=== PATIENT | female | born 1950 | race Caucasian/White ===

== ENCOUNTER 2022-07-14 10:08 | Emergency (ER) | payer MEDICARE, OTHER ==
[~2022-07-14] VITALS: Ht 160 cm; Wt 68.0 kg
--- NOTE | 2022-07-14 10:24 | NUR ---
Awaiting arrival of staff member to help translate for pt (Haitian speaker).
[2022-07-14 10:38] LABS: HEMATOCRIT 38.4 % (31.2-41.9); MEAN CORPUSCULAR HEMOGLOBIN 33.4 uug (24.7-32.8); MEAN CORPUSCULAR VOLUME 97.9 fL (75.5-95.3); PLATELET COUNT (AUTO) 229 K/uL (179-408)
[2022-07-14 10:52] LABS: BILIRUBIN,DIRECT 0.1 mg/dL (0.0-0.2); BILIRUBIN,TOTAL 0.5 mg/dL (0.2-1.0); CREATININE 0.8 mg/dL (0.6-1.3)
[2022-07-14 10:59] LABS: THYROID STIMULATING HORMONE 1.078 mIU/mL (0.358-3.740)
[2022-07-14 11:01] LABS: ACETAMINOPHEN < 10.0 ug/mL (10-30)
[2022-07-14 11:12] LABS: ETHANOL < 3 MG/DL (0-0)
--- NOTE | 2022-07-14 12:04 | NUR ---
Social work consult was requested for a patient in the emergency room to assess current living situation. Patient is 72-year-old female that was brought to the hospital by [id number] because she was wandering on the street. Patient is Macedonian speaking and SW used nurse, Wendi, as a supervisor stave finishing. Patient is alert and oriented X2. Patient was able to state her name and that she is at the hospital. Patient presents with anxious mood and congruent affect. Patients Hiren dixon ([phone]) was in the room with the patient during the assessment. Patients Hiren dixon ([phone]) states that he lives at [address] [place] [address]. Patients sonHiren ([phone]), states that the patient lives alone at [address] [place] [address] and that the patient has a absorber operator, Shanique ([phone]) that comes every day in the morning at 9am and in the afternoon from 1:30-4pm. Patients Hiren dixon ([phone]), states that he is getting approval for [facility] for 24/7 care for the patient. SW emphasized the importance of getting the patient 24/7 care and the patient's son stated that he understood and "is working on it now". Patients sonHiren ([phone]), states that he will take the patient home to [address] [place] [address] at discharge and will wait until the patients absorber operator, Shanique ([phone]), comes to the patients home. CLARE made and APS report (Intake ID [id number]) for self-neglect and a copy of Adult Protective Service Report was placed in the patients chart.
[2022-07-14] MEDS ORDERED: ACETAMINOPHEN 325 MG TABLET ONE (12:48)
[2022-07-14 13:07] LABS: *BILIRUBIN,URIN NEGATIVE (NEGATIVE); *BLOOD, URINE NEGATIVE (NEGATIVE); *CLARITY,URINE SLIGHTLY CLOUDY (CLEAR); *COLOR,URINE YELLOW (YELLOW); *KETONES,URINE NEGATIVE (NEGATIVE); *UROBILINOGEN,URINE 0.2 E.U./dl (NORMAL); LEUKOCYTE ESTERASE ,URINE TRACE (NEGATIVE); NITRITE, URINE NEGATIVE (NEGATIVE); PH,URINE 8.5 (5.0-8.0); UGLUCOSE NEGATIVE (NEGATIVE)
[2022-07-14 13:08] LABS: *AMPHETAMINE, URINE NEGATIVE (NEGATIVE); *CANNABINOID, URINE NEGATIVE (NEGATIVE); *COCCAINE, URINE NEGATIVE (NEGATIVE); *OPIATE, URINE NEGATIVE (NEGATIVE); *PHENCYCLIDINE SCREEN,URINE NEGATIVE (NEGATIVE)
[2022-07-14 13:15] LABS: BACTERIA,URINE MODERATE /HPF (NONE SEEN); SQUAMOUS EPITHELIAL CELL,UR FEW /HPF (NONE SEEN)
[2022-07-14 13:16] LABS: URINE AMORPHOUS URATE MODERATE /HPF
--- NOTE | 2022-07-17 10:08 | NUR ---
Per verbal order from Dr. Sanchez at 1245 hrs. on 07/14, administered two each Tylenol 325mg to pt, PO.
== END 2022-07-14 14:03 | disposition home or self-care (01) ==
LOC: ER 10:08
DX: R41.0 Disorientation, unspecified (principal); F03.91 Unspecified dementia, unspecified severity, with behavioral disturbance; Z91.83 Wandering in diseases classified elsewhere; M48.55XA Collapsed vertebra, not elsewhere classified, thoracolumbar region, initial encounter for fracture
CPT/HCPCS: 36415; 84443; 85025; 87086; A4663; G0480

== ENCOUNTER 2023-03-31 07:39 | Day surgery (SDC) | payer MEDICARE, OTHER ==
[2023-03-31] MEDS ORDERED: LIDOCAINE-MPF 2% 5 ML VIAL ONE (09:00)
[2023-03-31] MEDS ORDERED: GLYCOPYRROLATE 0.2 MG/ML VIAL ONE ×2 (09:00)
[2023-03-31] MEDS ORDERED: PROPOFOL 200 MG/20 ML BOTTLE ONE ×2 (09:00)
[2023-03-31 10:50] VITALS: TEMP 97.6
== END 2023-03-31 11:00 | disposition home or self-care (01) ==
LOC: DS 07:39
PROVIDERS: ATTEND Surgery
DX: R10.9 Unspecified abdominal pain (principal); R63.4 Abnormal weight loss; R19.7 Diarrhea, unspecified; R19.4 Change in bowel habit; K44.9 Diaphragmatic hernia without obstruction or gangrene; K21.00 Gastro-esophageal reflux disease with esophagitis, without bleeding; K57.30 Diverticulosis of large intestine without perforation or abscess without bleeding; K29.50 Unspecified chronic gastritis without bleeding; I12.9 Hypertensive chronic kidney disease with stage 1 through stage 4 chronic kidney disease, or unspecified chronic kidney disease; N18.9 Chronic kidney disease, unspecified; M19.90 Unspecified osteoarthritis, unspecified site; Z79.899 Other long term (current) drug therapy; Z98.890 Other specified postprocedural states
CPT/HCPCS: 45380; 43239; J3490 ×3; J7120; 88313-TC; 88342; A4663